=== PATIENT | male | born 1965 | race American Indian/Alaskan Native ===

== ENCOUNTER 2018-10-24 13:21 | Inpatient (IN) | payer BC ==
--- NOTE | 2018-10-24 13:29 | Event Note ---
ED Screening Note Date of service: 10/24/18 Time: 13:27 ED Screening Note: This is a 53 y.o. M. that presents to the ER with abdominal pain, dizziness, and nausea since yesterday. Denies recent travel This initial assessment/diagnostic orders/clinical plan/treatment(s) is/are subject to change based on patients health status, clinical progression and re- assessment by fellow clinical providers in the ED. Further treatment and workup at subsequent clinical providers discretion. Patient/guardian urged not to elope from the ED as their condition may be serious if not clinically assessed and managed. Initial orders include: Labs
[2018-10-24 13:40] LABS: Basophils # (Auto) 0.1 K/mm3 (0.0-0.1); Basophils % (Auto) 0.6 % (0.0-1.8); Eosinophils # (Auto) 0.1 K/mm3 (0.0-0.4); Eosinophils % (Auto) 0.4 % (0.0-4.3); Hematocrit 48.3 % (35.5-45.6); Hemoglobin 16.2 gm/dl (11.8-15.2); Lymphocytes # (Auto) 2.8 K/mm3 (1.2-5.4); Lymphocytes % (Auto) 14.2 % (13.4-35.0); Mean Corpuscular HGB Conc 34 % (32-34); Mean Corpuscular Volume 81 fl (84-94); Monocytes # (Auto) 0.9 K/mm3 (0.0-0.8); Monocytes % (Auto) 4.4 % (0.0-7.3); Platelet Count 284 K/mm3 (140-440); Red Blood Count 5.98 M/mm3 (3.65-5.03); Red Cell Distribution Width 14.6 % (13.2-15.2)
[2018-10-24 14:07] LABS: Bacteria,Urine 1+ /HPF (Negative); Bilirubin,Urine NEG (Negative); Blood,Urine SM (Negative); Color,Urine Straw (Yellow); Mucus,Urine FEW /HPF; Protein,Urine <15 mg/dL mg/dL (Negative); Urobilinogen,Urine < 2.0 mg/dL (<2.0); WBC,Urine < 1.0 /HPF (0.0-6.0)
[2018-10-24 14:20] LABS: Albumin 4.5 g/dL (3.9-5)
[2018-10-24] MEDS ORDERED: NACL 0.9% 1000 ML 1,000 ML IV ONE ×2 (14:43→14:44)
[2018-10-24] MEDS ORDERED: HumuLIN R IV ONE (14:43)
[2018-10-24] MEDS ORDERED: D50W (25GM) Syringe IV PRN ×2 (14:55→16:54)
[2018-10-24] MEDS ORDERED: HumuLIN R 100 UNITS in NACL 0.9% 99 ML IV SCH ×2 (15:00→17:00)
--- NOTE | 2018-10-24 15:03 | Emergency Department Report ---
ED General Adult HPI - General Chief complaint: Abdominal Pain Stated complaint: STOMACH PAIN/LIGHT HEADED Time Seen by Provider: 10/24/18 13:26 Source: patient Mode of arrival: Ambulatory Limitations: No Limitations - History of Present Illness Initial comments: 53-year-old male with no past medical surgical history presents to the hospital complaining of feeling ill for the last several days. Patient had a root canal 4 days ago and has been on a soft diet. He is not prescribed antibiotics. He denies fever. The last several days patient has had nausea, poor appetite, increased thirst, increased urination, lethargy, and fatigue. Yesterday he had one episode of vomiting but has not vomited since. He denies abdominal pain currently although he did complain of pain in triage and to friend at the bedside. - Related Data Home Medications Medication Instructions Recorded Confirmed Last Taken Amoxicillin [Trimox CAP] 500 mg PO TID 10/24/18 10/24/18 Unknown Tylenol /Codeine # 3 tab 1 each PO Q6H PRN 10/24/18 10/24/18 Unknown Allergies Allergy/AdvReac Type Severity Reaction Status Date / Time No Known Allergies Allergy Verified 10/24/18 13:24 ED Review of Systems ROS: Stated complaint: STOMACH PAIN/LIGHT HEADED Other details as noted in HPI Comment: All other systems reviewed and negative ED Past Medical Hx - Social History Smoking Status: Never Smoker Substance Use Type: Alcohol - Medications Home Medications: Home Medications Medication Instructions Recorded Confirmed Last Taken Type Amoxicillin [Trimox CAP] 500 mg PO TID 10/24/18 10/24/18 Unknown History Tylenol /Codeine # 3 tab 1 each PO Q6H PRN 10/24/18 10/24/18 Unknown History ED Physical Exam - General Limitations: No Limitations - Other Other exam information: Gen.: No acute distress Head: Atraumatic Eyes: Normal appearance ENT: Dry mucous membranes Neck: Normal appearance, no posterior midline tenderness, no meningismus Chest: Clear to auscultation bilaterally Cardiovascular: Med tachycardia Abdomen: Normal appearance, soft, nontender, no rebound or guarding, normal bowel sounds Back: Normal appearance, nontender Extremity: Full range of motion, normal appearance Neuro: Alert and oriented 3, clear speech, no focal motor or sensory deficit Psychiatric: Appropriate Skin: No rash ED Course Vital Signs 10/24/18 10/24/18 13:26 15:05 Temperature 98.3 F Pulse Rate 107 H Respiratory 16 Rate Blood Pressure 149/93 O2 Sat by Pulse 95 Oximetry ED Medical Decision Making - Lab Data Result diagrams: 10/24/18 13:30 10/24/18 15:05 Lab Results 10/24/18 10/24/18 10/24/18 Range/Units 13:30 13:30 13:51 WBC 19.9 H (4.5-11.0) K/mm3 RBC 5.98 H (3.65-5.03) M/mm3 Hgb 16.2 H (11.8-15.2) gm/dl Hct 48.3 H (35.5-45.6) % MCV 81 L (84-94) fl MCH 27 L (28-32) pg MCHC 34 (32-34) % RDW 14.6 (13.2-15.2) % Plt Count 284 (140-440) K/mm3 Lymph % (Auto) 14.2 (13.4-35.0) % [place] % (Auto) 4.4 (0.0-7.3) % Eos % (Auto) 0.4 (0.0-4.3) % Baso % (Auto) 0.6 (0.0-1.8) % Lymph # 2.8 (1.2-5.4) K/mm3 [place] # 0.9 H (0.0-0.8) K/mm3 Eos # 0.1 (0.0-0.4) K/mm3 Baso # 0.1 (0.0-0.1) K/mm3 Seg Neutrophils % 80.4 H (40.0-70.0) % Seg Neutrophils # 16.0 H (1.8-7.7) K/mm3 Sodium 131 L (137-145) mmol/L Potassium 5.7 H (3.6-5.0) mmol/L Chloride 87.0 L (98-107) mmol/L Carbon Dioxide 12 L (22-30) mmol/L Anion Gap 38 mmol/L BUN 25 H (9-20) mg/dL Creatinine 1.6 H (0.8-1.5) mg/dL Estimated GFR 55 ml/min BUN/Creatinine Ratio 16 % Glucose 756 H* (75-100) mg/dL Calcium 10.0 (8.4-10.2) mg/dL Total Bilirubin 1.60 H (0.1-1.2) mg/dL AST 23 (5-40) units/L ALT 14 (7-56) units/L Alkaline Phosphatase 104 (35-129) units/L Total Protein 8.9 H (6.3-8.2) g/dL Albumin 4.5 (3.9-5) g/dL Albumin/Globulin Ratio 1.0 % Lipase 26 (13-60) units/L Urine Color Straw (Yellow) Urine Turbidity Clear (Clear) Urine pH 5.0 (5.0-7.0) Ur Specific [place] 1.028 (1.003-1.030) Urine Protein <15 mg/dl (Negative) mg/dL Urine Glucose (UA) >=500 (Negative) mg/dL Urine Ketones 80 (Negative) mg/dL Urine Blood Sm (Negative) Urine Nitrite Neg (Negative) Urine Bilirubin Neg (Negative) Urine Urobilinogen < 2.0 (<2.0) mg/dL Ur Leukocyte Esterase Neg (Negative) Urine WBC (Auto) < 1.0 (0.0-6.0) /HPF Urine RBC (Auto) 2.0 (0.0-6.0) /HPF U Epithel Cells (Auto) < 1.0 (0-13.0) /HPF Urine Bacteria (Auto) 1+ (Negative) /HPF Urine Mucus Few /HPF - EKG Data -: EKG Interpreted by [place] EKG shows normal: sinus rhythm, axis, ST-T waves (no stemi) Rate: tachycardia (112) - Medical Decision Making pt with nausea diabetes and DKA diagnosis. Insulin bolus, normal saline, insulin drip initiated. Patient has leukocytosis without signs of infections at this time. Patient admitted ICU to hospitalist service. - Differential Diagnosis infection, dehydration, diabetes, Critical Care Time: Yes Critical care time in (mins) excluding proc time.: 35 Critical care attestation.: If time is entered above; I have spent that time in minutes in the direct care of this critically ill patient, excluding procedure time. ED Disposition Clinical Impression: Diabetes mellitus, new onset, DKA (diabetic ketoacidosis), Leukocytosis, uns pecified, Renal insufficiency Disposition: DC09 OP ADMIT IP TO THIS HOSP Is pt being admited?: Yes Condition: Stable Time of Disposition: 15:22 (Dr canchola/hosp)
[2018-10-24 15:48] LABS: Blood Urea Nitrogen TNR mg/dL (9-20)
[2018-10-24 15:49] LABS: BUN/Creatinine Ratio TNR; Calcium TNR mg/dL (8.4-10.2); Hemolysis Index TNR
--- NOTE | 2018-10-24 16:32 | History and Physical Report ---
History of Present Illness Date of examination: 10/24/18 Date of admission: 10/24/18 15:23 Chief complaint: Feeling weak and tired 1 week History of present illness: 53-year-old male with no past medical surgical history presents to the hospital complaining of feeling ill for the last several days. Patient had a root canal 4 days ago and has been on a soft diet. He is not prescribed antibiotics. He denies fever. The last several days patient has had nausea, poor appetite, increased thirst, increased urination, lethargy, and fatigue. Yesterday he had one episode of vomiting but has not vomited since. He denies abdominal pain currently although he did complain of pain in triage and to friend at the bedside. PMH None PSH None Social History Smoking Status: Never Smoker Substance Use Type: Alcohol Review of Systems ROS: Stated complaint: STOMACH PAIN/LIGHT HEADED Other details as noted in HPI Has polyphagia and polyuria.ALso increased thirst and drinking lots of fluids Comment: All other systems reviewed and negative Medications and Allergies Allergies Allergy/AdvReac Type Severity Reaction Status Date / Time No Known Allergies Allergy Verified 10/24/18 13:24 Home Medications Medication Instructions Recorded Confirmed Last Taken Type Amoxicillin [Trimox CAP] 500 mg PO TID 10/24/18 10/24/18 Unknown History Tylenol /Codeine # 3 tab 1 each PO Q6H PRN 10/24/18 10/24/18 Unknown History Active Meds: Active Medications Dextrose (D50w (25gm) Syringe) 0 ml IV PRN PRN PRN Reason: Hypoglycemia Insulin Human Regular 100 (units/ Sodium Chloride) 100 mls @ 1 mls/hr IV TITR SADA; Protocol Exam - Constitutional Vitals: Temp Pulse Resp BP Pulse Ox 98.3 F 107 H 16 149/93 95 10/24/18 15:05 10/24/18 13:26 10/24/18 13:26 10/24/18 13:26 10/24/18 13:26 General appearance: Present: mild distress, well-nourished - EENT Eyes: Present: PERRL ENT: hearing intact, clear oral mucosa - Neck Neck: Present: supple, normal ROM - Respiratory Respiratory effort: normal Respiratory: bilateral: CTA - Cardiovascular Heart rate: 78 Rhythm: regular Heart Sounds: Present: S1 & S2. Absent: rub, click - Extremities Extremities: no ischemia, pulses intact, pulses symmetrical, No edema Peripheral Pulses: within normal limits - Abdominal General gastrointestinal: Present: soft, non-tender, non-distended, normal bowel sounds Male genitourinary: Present: normal - Rectal Rectal Exam: deferred - Integumentary Integumentary: Present: clear, warm, dry - Musculoskeletal Musculoskeletal: gait normal, strength equal bilaterally - Psychiatric Psychiatric: appropriate mood/affect, intact judgment & insight - Neurologic Neurologic: CNII-XII intact, moves all extremities - Allied Health Allied health notes reviewed: nursing Results - Labs CBC & Chem 7: 10/24/18 13:30 10/25/18 01:33 Labs: Laboratory Last Values WBC 19.9 K/mm3 (4.5-11.0) H 10/24/18 13:30 RBC 5.98 M/mm3 (3.65-5.03) H 10/24/18 13:30 Hgb 16.2 gm/dl (11.8-15.2) H 10/24/18 13:30 Hct 48.3 % (35.5-45.6) H 10/24/18 13:30 MCV 81 fl (84-94) L 10/24/18 13:30 MCH 27 pg (28-32) L 10/24/18 13:30 MCHC 34 % (32-34) 10/24/18 13:30 RDW 14.6 % (13.2-15.2) 10/24/18 13:30 Plt Count 284 K/mm3 (140-440) 10/24/18 13:30 Lymph % (Auto) 14.2 % (13.4-35.0) 10/24/18 13:30 [place] % (Auto) 4.4 % (0.0-7.3) 10/24/18 13:30 Eos % (Auto) 0.4 % (0.0-4.3) 10/24/18 13:30 Baso % (Auto) 0.6 % (0.0-1.8) 10/24/18 13:30 Lymph # 2.8 K/mm3 (1.2-5.4) 10/24/18 13:30 [place] # 0.9 K/mm3 (0.0-0.8) H 10/24/18 13:30 Eos # 0.1 K/mm3 (0.0-0.4) 10/24/18 13:30 Baso # 0.1 K/mm3 (0.0-0.1) 10/24/18 13:30 Seg Neutrophils % 80.4 % (40.0-70.0) H 10/24/18 13:30 Seg Neutrophils # 16.0 K/mm3 (1.8-7.7) H 10/24/18 13:30 VBG pH 7.294 (7.320-7.420) L 10/24/18 15:05 Sodium TNR 10/24/18 15:05 Potassium TNR 10/24/18 15:05 Chloride TNR 10/24/18 15:05 Carbon Dioxide TNR 10/24/18 15:05 TNR 10/24/18 15:05 BUN TNR 10/24/18 15:05 TNR 10/24/18 15:05 Estimated GFR TNR 10/24/18 15:05 TNR 10/24/18 15:05 Glucose TNR 10/24/18 15:05 Calcium TNR 10/24/18 15:05 Phosphorus 5.40 mg/dL (2.5-4.5) H 10/24/18 15:05 Magnesium 2.70 mg/dL (1.7-2.3) H 10/24/18 15:05 1.60 mg/dL (0.1-1.2) H 10/24/18 13:30 AST 23 units/L (5-40) 10/24/18 13:30 ALT 14 units/L (7-56) 10/24/18 13:30 104 units/L (35-129) 10/24/18 13:30 8.9 g/dL (6.3-8.2) H 10/24/18 13:30 4.5 g/dL (3.9-5) 10/24/18 13:30 1.0 % 10/24/18 13:30 26 units/L (13-60) 10/24/18 13:30 Straw (Yellow) 10/24/18 13:51 Clear (Clear) 10/24/18 13:51 5.0 (5.0-7.0) 10/24/18 13:51 Ur Specific [place] 1.028 (1.003-1.030) 10/24/18 13:51 <15 mg/dl mg/dL (Negative) 10/24/18 13:51 >=500 mg/dL (Negative) 10/24/18 13:51 80 mg/dL (Negative) 10/24/18 13:51 Sm (Negative) 10/24/18 13:51 Neg (Negative) 10/24/18 13:51 Neg (Negative) 10/24/18 13:51 < 2.0 mg/dL (<2.0) 10/24/18 13:51 Ur Leukocyte Esterase Neg (Negative) 10/24/18 13:51 < 1.0 /HPF (0.0-6.0) 10/24/18 13:51 2.0 /HPF (0.0-6.0) 10/24/18 13:51 U Epithel Cells (Auto) < 1.0 /HPF (0-13.0) 10/24/18 13:51 1+ /HPF (Negative) 10/24/18 13:51 Few /HPF 10/24/18 13:51 Short CBC 10/24/18 Range/Units 13:30 WBC 19.9 H (4.5-11.0) K/mm3 Hgb 16.2 H (11.8-15.2) gm/dl Hct 48.3 H (35.5-45.6) % Plt Count 284 (140-440) K/mm3 BMP 10/24/18 10/24/18 10/24/18 13:30 15:05 17:45 Sodium 131 L TNR 135 L Potassium 5.7 H TNR 5.0 Chloride 87.0 L TNR 96.8 L Carbon Dioxide 12 L TNR 11 L BUN 25 H TNR 23 H Creatinine 1.6 H TNR 1.5 Glucose 756 H* TNR 502 H* Calcium 10.0 TNR 9.6 10/24/18 10/24/18 10/24/18 20:40 21:05 23:12 Sodium 138 138 141 Potassium 5.1 H 5.1 H 4.3 Chloride 98.5 99.4 103.4 Carbon Dioxide 12 L 13 L 20 L D BUN 23 H 23 H 22 H Creatinine 1.5 1.5 1.4 Glucose 385 H 386 H 291 H Calcium 10.2 10.3 H 10.1 10/25/18 01:33 Sodium 142 Potassium 4.4 Chloride 105.3 Carbon Dioxide 22 BUN 21 H Creatinine 1.4 Glucose 269 H Calcium 10.0 Liver Function 10/24/18 Range/Units 13:30 Total Bilirubin 1.60 H (0.1-1.2) mg/dL AST 23 (5-40) units/L ALT 14 (7-56) units/L Alkaline Phosphatase 104 (35-129) units/L Albumin 4.5 (3.9-5) g/dL Urine 10/24/18 Range/Units 13:51 Urine Color Straw (Yellow) Urine pH 5.0 (5.0-7.0) Ur Specific [place] 1.028 (1.003-1.030) Urine Protein <15 mg/dl (Negative) mg/dL Urine Glucose (UA) >=500 (Negative) mg/dL Assessment and Plan Advance Directives: Yes (Full code) VTE prophylaxis?: Chemical Plan of care discussed with patient/family: Yes - Patient Problems (1) Hyperosmolar non-ketotic state in patient with type 2 diabetes mellitus Current Visit: Yes Status: Acute Plan to address problem: New onset diabetes with Hyperosmolar state. Ketones are mildly positive DKA protocol initiated IV Insulin and IV fluids initiated (2) Hyponatremia Current Visit: Yes Status: Acute Plan to address problem: Should correct with correction of Glucose levels (3) Leukocytosis, unspecified Current Visit: Yes Status: Acute Plan to address problem: Probable demargination Empiric IV Rocephin Initiated (4) Hyperkalemia Current Visit: Yes Status: Acute Plan to address problem: Should correct with insulin drip and correction of BG levels (5) DVT prophylaxis Current Visit: Yes Status: Acute Plan to address problem: On lovenox and GI prophylaxis
[2018-10-24 18:27] LABS: Calcium 9.6 mg/dL (8.4-10.2)
[2018-10-24] MEDS: NACL 0.9% 1000 ML 1,000 ML IV SCH (21:15)
[2018-10-24 21:47] LABS: Calcium 10.3 mg/dL (8.4-10.2)
[2018-10-24 21:59] LABS: Calcium 10.2 mg/dL (8.4-10.2)
[2018-10-24] MEDS ORDERED: D5/0.45NS 1,000 ML IV SCH (23:45)
[2018-10-25 00:01] LABS: BUN/Creatinine Ratio 16; Blood Urea Nitrogen 22 mg/dL (9-20); Calcium 10.1 mg/dL (8.4-10.2); Hemolysis Index 6
[2018-10-25] MEDS ORDERED: D5/0.45NS 1,000 ML IV ONE (00:45)
[2018-10-25 02:08] LABS: BUN/Creatinine Ratio 15; Blood Urea Nitrogen 21 mg/dL (9-20); Hemolysis Index 6
[2018-10-25] MEDS: KCL 10MEQ/100ML 10 MEQ/100 ML BAG IV SCH ×6 (07:31→19:51)
[2018-10-25] MEDS: ROCEPHIN/NS 2 GM/100 ML 2 GM/100 ML BAG IV SCH ×2 (07:33→12:20)
--- NOTE | 2018-10-25 08:21 | Progress Note ---
Assessment and Plan Assessment and plan: Patient is a 53-year-old man without a known history of chronic medical problems who presented to [facility] ED with N/V, poor appetite, increased thirst, increased urination, lethargy, and fatigue. Patient had a root canal 5 days ago. -DKA/HONK: anion gap has closed, will transition to sq Insulin/Lantus with SSI -New onset DM type 2 needing insulin: A1c is 6.1 -ARF, vasomotor nephropathy: treat with IVF -SIRS with organ dysfunction, renal failure and new DM: on empiric Rocephin, get blood cultures x 2 sets, check CXR -Oral thrush, either DM related vs HIV vs other: Patient declined HIV testing because he had one within this year, counseling and education done, treat with diflucan -Recent Root canal: he should return to his Dentist -Hyperkalemia: treated with IV insulin, monitor bmp closely -Metabolic Acidosis: treat the DKA -DVT/GI reviewed Disposition: continue inpatient care, can downgrade to Med Surg once off Insulin CCT 32 minutes History Interval history: Patient was seen and examined. Follow-up on current diagnosis of DKA. No overnight events reported to me. Patient denies any chest pain, shortness breath, nausea/vomiting or severe headaches. Imaging, nursing note, chart, labs and old chart reviewed. Discussed with patient. Hospitalist Physical - Physical exam Narrative exam: Gen: WDWN, NAD, Awake, Alert, Orientated HEENT: NCAT, EOMI, PERRL, OP with oral thrush Neck: supple, no adenopathy, no thyromegaly, no JVD CVS/Heart: RRR, normal S1S2, pulses present bilaterally Chest/Lungs: CTA B, Symmetrical chest expansion, good air entry bilaterally GI/Abdomen: soft, NTND, good bowel sounds, no guarding or rebound /Bladder: no suprapubic tenderness, no CVA or paraspinal tenderness Extermity/Skin: no c/c/e, no obvious rash MSK: FROM x 4 Neuro: CN 2-12 grossly intact, no new focal deficits Psych: calm - Constitutional Vitals: Temp Pulse Resp BP Pulse Ox 97.7 F 94 H 16 126/82 97 10/24/18 19:15 10/25/18 07:29 10/25/18 07:29 10/25/18 07:29 10/25/18 07:29 General appearance: Present: well-nourished Results - Labs CBC & Chem 7: 10/24/18 13:30 10/25/18 01:33 Labs: Laboratory Last Values WBC 19.9 K/mm3 (4.5-11.0) H 10/24/18 13:30 RBC 5.98 M/mm3 (3.65-5.03) H 10/24/18 13:30 Hgb 16.2 gm/dl (11.8-15.2) H 10/24/18 13:30 Hct 48.3 % (35.5-45.6) H 10/24/18 13:30 MCV 81 fl (84-94) L 10/24/18 13:30 MCH 27 pg (28-32) L 10/24/18 13:30 MCHC 34 % (32-34) 10/24/18 13:30 RDW 14.6 % (13.2-15.2) 10/24/18 13:30 Plt Count 284 K/mm3 (140-440) 10/24/18 13:30 Lymph % (Auto) 14.2 % (13.4-35.0) 10/24/18 13:30 [place] % (Auto) 4.4 % (0.0-7.3) 10/24/18 13:30 Eos % (Auto) 0.4 % (0.0-4.3) 10/24/18 13:30 Baso % (Auto) 0.6 % (0.0-1.8) 10/24/18 13:30 Lymph # 2.8 K/mm3 (1.2-5.4) 10/24/18 13:30 [place] # 0.9 K/mm3 (0.0-0.8) H 10/24/18 13:30 Eos # 0.1 K/mm3 (0.0-0.4) 10/24/18 13:30 Baso # 0.1 K/mm3 (0.0-0.1) 10/24/18 13:30 Seg Neutrophils % 80.4 % (40.0-70.0) H 10/24/18 13:30 Seg Neutrophils # 16.0 K/mm3 (1.8-7.7) H 10/24/18 13:30 VBG pH 7.294 (7.320-7.420) L 10/24/18 15:05 Sodium 142 mmol/L (137-145) 10/25/18 01:33 Potassium 4.4 mmol/L (3.6-5.0) 10/25/18 01:33 Chloride 105.3 mmol/L (98-107) 10/25/18 01:33 Carbon Dioxide 22 mmol/L (22-30) 10/25/18 01:33 19 mmol/L 10/25/18 01:33 BUN 21 mg/dL (9-20) H 10/25/18 01:33 1.4 mg/dL (0.8-1.5) 10/25/18 01:33 Estimated GFR > 60 ml/min 10/25/18 01:33 15 % 10/25/18 01:33 Glucose 269 mg/dL (75-100) H 10/25/18 01:33 POC Glucose 195 (70-105) H 10/25/18 08:00 6.1 % (4-6) H 10/24/18 17:42 Calcium 10.0 mg/dL (8.4-10.2) 10/25/18 01:33 Phosphorus 3.10 mg/dL (2.5-4.5) D 10/24/18 17:42 Magnesium 2.60 mg/dL (1.7-2.3) H 10/24/18 17:42 1.60 mg/dL (0.1-1.2) H 10/24/18 13:30 AST 23 units/L (5-40) 10/24/18 13:30 ALT 14 units/L (7-56) 10/24/18 13:30 104 units/L (35-129) 10/24/18 13:30 8.9 g/dL (6.3-8.2) H 10/24/18 13:30 4.5 g/dL (3.9-5) 10/24/18 13:30 1.0 % 10/24/18 13:30 26 units/L (13-60) 10/24/18 13:30 Straw (Yellow) 10/24/18 13:51 Clear (Clear) 10/24/18 13:51 5.0 (5.0-7.0) 10/24/18 13:51 Ur Specific [place] 1.028 (1.003-1.030) 10/24/18 13:51 <15 mg/dl mg/dL (Negative) 10/24/18 13:51 >=500 mg/dL (Negative) 10/24/18 13:51 80 mg/dL (Negative) 10/24/18 13:51 Sm (Negative) 10/24/18 13:51 Neg (Negative) 10/24/18 13:51 Neg (Negative) 10/24/18 13:51 < 2.0 mg/dL (<2.0) 10/24/18 13:51 Ur Leukocyte Esterase Neg (Negative) 10/24/18 13:51 < 1.0 /HPF (0.0-6.0) 10/24/18 13:51 2.0 /HPF (0.0-6.0) 10/24/18 13:51 U Epithel Cells (Auto) < 1.0 /HPF (0-13.0) 10/24/18 13:51 1+ /HPF (Negative) 10/24/18 13:51 Few /HPF 10/24/18 13:51 Active Medications - Current Medications Current Medications: Generic Name Dose Route Start Last Admin Trade Name Freq PRN Reason Stop Dose Admin Dextrose 0 ml 10/24/18 16:54 D50w (25gm) Syringe IV PRN PRN Hypoglycemia Insulin Human Regular 100 100 mls @ 1 mls/hr 10/24/18 15:00 10/25/18 06:35 units/ Sodium Chloride IV 10 units/hr TITR SADA 10 mls/hr Titration Protocol 1 UNITS/HR Sodium Chloride 1,000 mls @ 125 mls/hr 10/24/18 21:00 10/24/18 21:15 Nacl 0.9% 1000 Ml IV 125 mls/hr DIRECT SADA Administration Dextrose/Sodium Chloride 1,000 mls @ 125 mls/hr 10/24/18 23:45 10/25/18 00:45 D5/0.45ns IV 125 mls/hr DIRECT SADA Administration Ceftriaxone Sodium 2 gm in 100 mls @ 200 mls/hr 10/25/18 06:29 10/25/18 07:33 Rocephin/Ns 2 Gm/100 Ml IV 200 mls/hr Q24HR SADA Administration Protocol
[2018-10-25] MEDS ORDERED: D50W (25GM) Syringe IV PRN (08:24)
[2018-10-25] MEDS ORDERED: LANTUS SUB-Q ONE (08:24)
--- NOTE | 2018-10-25 09:22 | XRay Report ---
CHEST 1 VIEW INDICATION: n/v, aspiration pna. COMPARISON: None FINDINGS: Support devices: None. Heart: Within normal limits. Lungs/Pleura: No acute air space or interstitial disease. Additional findings: None. IMPRESSION: 1. No acute findings. Signer Name: Kai Martin MD Signed: 10/25/2018 9:17 AM Workstation Name: [id number]
[2018-10-25] MEDS ORDERED: HumaLOG SUB-Q ONE (09:31)
[2018-10-25] MEDS: HumaLOG SUB-Q SCH ×3 (09:32→17:18)
[2018-10-25] MEDS ORDERED: DIFLUCAN PO ONE (11:00)
[2018-10-25] MEDS: NACL 0.9% 1000 ML 1,000 ML IV SCH ×2 (11:26→21:23)
[2018-10-26] MEDS: HumaLOG SUB-Q SCH ×5 (00:39→23:17)
[2018-10-26 04:59] LABS: Hematocrit 44.7 % (35.5-45.6); Hemoglobin 15.1 gm/dl (11.8-15.2); Mean Corpuscular HGB Conc 34 % (32-34); Mean Corpuscular Volume 81 fl (84-94); Platelet Count 178 K/mm3 (140-440); Red Blood Count 5.51 M/mm3 (3.65-5.03); Red Cell Distribution Width 14.9 % (13.2-15.2)
[2018-10-26 05:21] LABS: BUN/Creatinine Ratio 16; Blood Urea Nitrogen 21 mg/dL (9-20); Calcium 9.5 mg/dL (8.4-10.2); Hemolysis Index 18
[2018-10-26] MEDS: NACL 0.9% 1000 ML 1,000 ML IV SCH (05:34)
[2018-10-26] MEDS ORDERED: LANTUS SUB-Q SCH (08:00)
[2018-10-26] MEDS: DIFLUCAN PO SCH (09:06)
[2018-10-26] MEDS: ROCEPHIN/NS 2 GM/100 ML 2 GM/100 ML BAG IV SCH (09:06)
[2018-10-26] MEDS ORDERED: LANTUS SUB-Q ONE (10:39)
--- NOTE | 2018-10-26 10:41 | Progress Note ---
Assessment and Plan Assessment and plan: Patient is a 53-year-old man without a known history of chronic medical problems who presented to [facility] ED with N/V, poor appetite, increased thirst, increased urination, lethargy, and fatigue. Patient had a root canal 5 days ago. -DKA/HONK: anion gap has closed, will transition to sq Insulin/Lantus with SSI -New onset DM type 2 needing insulin: A1c is 6.1 -ARF, vasomotor nephropathy: treat with IVF -SIRS with organ dysfunction, renal failure and new DM: on empiric Rocephin, get blood cultures x 2 sets, check CXR -Oral thrush, either DM related vs HIV vs other: Patient declined HIV testing because he had one within this year, counseling and education done, treat with diflucan -Recent Root canal: he should return to his Dentist -Hyperkalemia: treated with IV insulin, monitor bmp closely -Metabolic Acidosis: treat the DKA -DVT/GI reviewed Disposition: continue inpatient care, increase Lantus to 35 units qam, if blood glucose steady then d/c tomorrow has oral thrush but declined HIV testing, History Interval history: Patient was seen and examined. Follow-up on current diagnosis of DKA. No overnight events reported to me. Patient denies any chest pain, shortness breath, nausea/vomiting or severe headaches. Imaging, nursing note, chart, labs and old chart reviewed. Discussed with patient. Hospitalist Physical - Physical exam Narrative exam: Gen: WDWN, NAD, Awake, Alert, Orientated HEENT: NCAT, EOMI, PERRL, OP with oral thrush Neck: supple, no adenopathy, no thyromegaly, no JVD CVS/Heart: RRR, normal S1S2, pulses present bilaterally Chest/Lungs: CTA B, Symmetrical chest expansion, good air entry bilaterally GI/Abdomen: soft, NTND, good bowel sounds, no guarding or rebound /Bladder: no suprapubic tenderness, no CVA or paraspinal tenderness Extermity/Skin: no c/c/e, no obvious rash MSK: FROM x 4 Neuro: CN 2-12 grossly intact, no new focal deficits Psych: calm - Constitutional Vitals: Temp Pulse Resp BP Pulse Ox 98.0 F 77 24 120/78 97 10/26/18 04:59 10/26/18 04:59 10/26/18 04:59 10/26/18 04:59 10/26/18 04:59 General appearance: Present: well-nourished Results - Labs CBC & Chem 7: 10/26/18 04:24 10/26/18 04:24 Labs: Laboratory Last Values WBC 13.3 K/mm3 (4.5-11.0) H 10/26/18 04:24 RBC 5.51 M/mm3 (3.65-5.03) H 10/26/18 04:24 Hgb 15.1 gm/dl (11.8-15.2) 10/26/18 04:24 Hct 44.7 % (35.5-45.6) 10/26/18 04:24 MCV 81 fl (84-94) L 10/26/18 04:24 MCH 27 pg (28-32) L 10/26/18 04:24 MCHC 34 % (32-34) 10/26/18 04:24 RDW 14.9 % (13.2-15.2) 10/26/18 04:24 Plt Count 178 K/mm3 (140-440) 10/26/18 04:24 Lymph % (Auto) 14.2 % (13.4-35.0) 10/24/18 13:30 Travis % (Auto) 4.4 % (0.0-7.3) 10/24/18 13:30 Eos % (Auto) 0.4 % (0.0-4.3) 10/24/18 13:30 Baso % (Auto) 0.6 % (0.0-1.8) 10/24/18 13:30 Lymph # 2.8 K/mm3 (1.2-5.4) 10/24/18 13:30 Travis # 0.9 K/mm3 (0.0-0.8) H 10/24/18 13:30 Eos # 0.1 K/mm3 (0.0-0.4) 10/24/18 13:30 Baso # 0.1 K/mm3 (0.0-0.1) 10/24/18 13:30 Seg Neutrophils % 80.4 % (40.0-70.0) H 10/24/18 13:30 Seg Neutrophils # 16.0 K/mm3 (1.8-7.7) H 10/24/18 13:30 VBG pH 7.294 (7.320-7.420) L 10/24/18 15:05 Sodium 139 mmol/L (137-145) 10/26/18 04:24 Potassium 4.1 mmol/L (3.6-5.0) 10/26/18 04:24 Chloride 105.0 mmol/L (98-107) 10/26/18 04:24 Carbon Dioxide 21 mmol/L (22-30) L 10/26/18 04:24 17 mmol/L 10/26/18 04:24 BUN 21 mg/dL (9-20) H 10/26/18 04:24 1.3 mg/dL (0.8-1.5) 10/26/18 04:24 Estimated GFR > 60 ml/min 10/26/18 04:24 16 % 10/26/18 04:24 Glucose 311 mg/dL (75-100) H 10/26/18 04:24 POC Glucose 297 (70-105) H 10/26/18 05:34 6.1 % (4-6) H 10/24/18 17:42 Calcium 9.5 mg/dL (8.4-10.2) 10/26/18 04:24 Phosphorus 3.10 mg/dL (2.5-4.5) D 10/24/18 17:42 Magnesium 2.60 mg/dL (1.7-2.3) H 10/24/18 17:42 1.60 mg/dL (0.1-1.2) H 10/24/18 13:30 AST 23 units/L (5-40) 10/24/18 13:30 ALT 14 units/L (7-56) 10/24/18 13:30 104 units/L (35-129) 10/24/18 13:30 8.9 g/dL (6.3-8.2) H 10/24/18 13:30 4.5 g/dL (3.9-5) 10/24/18 13:30 1.0 % 10/24/18 13:30 26 units/L (13-60) 10/24/18 13:30 Straw (Yellow) 10/24/18 13:51 Clear (Clear) 10/24/18 13:51 5.0 (5.0-7.0) 10/24/18 13:51 Ur Specific [place] 1.028 (1.003-1.030) 10/24/18 13:51 <15 mg/dl mg/dL (Negative) 10/24/18 13:51 >=500 mg/dL (Negative) 10/24/18 13:51 80 mg/dL (Negative) 10/24/18 13:51 Sm (Negative) 10/24/18 13:51 Neg (Negative) 10/24/18 13:51 Neg (Negative) 10/24/18 13:51 < 2.0 mg/dL (<2.0) 10/24/18 13:51 Ur Leukocyte Esterase Neg (Negative) 10/24/18 13:51 < 1.0 /HPF (0.0-6.0) 10/24/18 13:51 2.0 /HPF (0.0-6.0) 10/24/18 13:51 U Epithel Cells (Auto) < 1.0 /HPF (0-13.0) 10/24/18 13:51 1+ /HPF (Negative) 10/24/18 13:51 Few /HPF 10/24/18 13:51 Active Medications - Current Medications Current Medications: Generic Name Dose Route Start Last Admin Trade Name Freq PRN Reason Stop Dose Admin Dextrose 50 ml 10/25/18 08:24 D50w (25gm) Syringe IV PRN PRN Hypoglycemia Fluconazole 100 mg 10/26/18 10:00 10/26/18 09:06 Diflucan PO 100 mg QDAY SADA Administration Sodium Chloride 1,000 mls @ 100 mls/hr 10/24/18 21:00 10/26/18 05:34 Nacl 0.9% 1000 Ml IV 125 mls/hr DIRECT SADA Administration Ceftriaxone Sodium 2 gm in 100 mls @ 200 mls/hr 10/25/18 06:29 10/26/18 09:06 Rocephin/Ns 2 Gm/100 Ml IV 200 mls/hr Q24HR SADA Administration Protocol Insulin Glargine 10 units 10/26/18 10:39 Lantus SUB-Q 10/26/18 10:40 ONCE ONE Insulin Glargine 35 units 10/27/18 08:00 Lantus SUB-Q QAMDIAB [facility] Insulin Human Lispro 0 unit 10/25/18 09:00 10/26/18 05:34 Humalog SUB-Q 6 unit Q6HR [facility] Administration Protocol Nutrition/Malnutrition Assess - Dietary Evaluation Nutrition/Malnutrition Findings: Nutrition Notes Start: 10/25/18 13:59 Freq: Status: Active Protocol: Document 10/25/18 13:59 RANDAL (Rec: 10/25/18 14:00 RANDAL [email or web address]) Nutrition Notes Need for Assessment generated from: MD Order,Education Initial or Follow up Brief Note Other Pertinent Diagnosis New onset DM Current Diet Consistent CHO Labs/Tests A1C 6.1 Subjective/Other Information RD consulted for diet education. BG upon admission was 756. Pt admitted with S/S of hyperglycemia. He reports family hx of DM and is receptive to diet education. Pt informed of free DM classes offered at this hospital. Minimum of two criteria No #1 Nutrition Diagnosis Food and nutrition-related knowledge deficit Etiology new onset DM As Evidenced by Signs and Symptoms pt unaware of food sources of CHO Nutrition Intervention Teaching Recipient Patient Learning Readiness Good Teaching Methods Discussion,Handout Response to Teaching Verbalize understanding Education Handouts Provided Signs and Symptoms of Hyperglycemia and Hypoglycemia Hemoglobin A1C and Blood Sugar Control Carbohydrate Counting for People with Diabetes Barriers to Learning No Barriers RD phone number provided Yes Patient aware of follow up options Yes Actions To Overcome Barriers Collaboration with Other Providers Goal #1 Improved BG control Goal #2 Adherence to CHO-controlled diet Anticipated Discharge Needs: CHO-controlled diet Revisit per MD consult or patient Sign Off request:
[2018-10-26] MEDS ORDERED: D50W (25GM) Syringe IV PRN (10:42)
[2018-10-27] MEDS ORDERED: LANTUS SUB-Q SCH (08:00)
[2018-10-27 08:50] LABS: Hematocrit 42.3 % (35.5-45.6); Hemoglobin 14.6 gm/dl (11.8-15.2); Mean Corpuscular HGB Conc 35 % (32-34); Mean Corpuscular Volume 81 fl (84-94); Platelet Count 167 K/mm3 (140-440); Red Blood Count 5.24 M/mm3 (3.65-5.03); Red Cell Distribution Width 14.3 % (13.2-15.2)
[2018-10-27] MEDS: HumaLOG SUB-Q SCH ×3 (08:57→17:57)
[2018-10-27] MEDS: ROCEPHIN/NS 2 GM/100 ML 2 GM/100 ML BAG IV SCH (09:00)
[2018-10-27] MEDS: DIFLUCAN PO SCH (09:04)
[2018-10-27 09:12] LABS: BUN/Creatinine Ratio 15; Blood Urea Nitrogen 17 mg/dL (9-20); Calcium 9.4 mg/dL (8.4-10.2); Hemolysis Index 5
--- NOTE | 2018-10-27 10:16 | Discharge Summary ---
Providers - Providers Date of Admission: 10/24/18 15:23 Date of discharge: 10/27/18 Attending physician: GLENNY ARTHUR 10/25/18 06:43 Consult to Dietitian/Nutrition [CONS] Routine Physician Instructions: Reason For Exam: new onset diabetes Reason for Consult: Nutrition Recommendations Reason for Consult: Diet education [facility] Condition: Stable Hospital course: Patient is a 53-year-old man without a known history of chronic medical problems who presented to [facility] ED with N/V, poor appetite, increased thirst, increased urination, lethargy, and fatigue. Patient had a root canal 5 days ago. -DKA/HONK: anion gap has closed, will transition to sq Insulin/Lantus with SSI -New onset DM type 2 needing insulin: A1c is 6.1 -ARF, vasomotor nephropathy: treat with IVF -SIRS with organ dysfunction, renal failure and new DM: on empiric Rocephin, get blood cultures x 2 sets, check CXR -Oral thrush, either DM related vs HIV vs other: Patient declined HIV testing because he had one within this year, counseling and education done, treat with diflucan -Recent Root canal: he should return to his Dentist -Hyperkalemia: treated with IV insulin, monitor bmp closely -Metabolic Acidosis: treat the DKA -DVT/GI reviewed Disposition: d/c home, patient required a total of 51 units of insulin yesterday, will adjust insulin and send home has oral thrush but declined HIV testing, Disposition: TO HOME OR SELFCARE Time spent for discharge: 34 minutes Core Measure Documentation - Palliative Care Palliative Care/ Comfort Measures: Not Applicable - Core Measures Any of the following diagnoses?: none - VTE Discharge Requirements Deep Vein Thrombosis/Pulmonary Embolism Present on Admission: No Has pt received <5 days of overlap therapy or INR<2.0: No Anticoagulant overlap therapy prescribed at discharge: No Contraindication No Overlap Therapy order at DC: Not Indicated Exam - Physical Exam Narrative exam: Gen: WDWN, NAD, Awake, Alert, Orientated HEENT: NCAT, EOMI, PERRL, OP with oral thrush Neck: supple, no adenopathy, no thyromegaly, no JVD CVS/Heart: RRR, normal S1S2, pulses present bilaterally Chest/Lungs: CTA B, Symmetrical chest expansion, good air entry bilaterally GI/Abdomen: soft, NTND, good bowel sounds, no guarding or rebound /Bladder: no suprapubic tenderness, no CVA or paraspinal tenderness Extermity/Skin: no c/c/e, no obvious rash MSK: FROM x 4 Neuro: CN 2-12 grossly intact, no new focal deficits Psych: calm - Constitutional Vitals: Temp Pulse Resp BP Pulse Ox 97.7 F 87 18 135/84 96 10/27/18 04:10/27/18 04:10/27/18 04:10/27/18 04:10/27/18 04:10 Plan Activity: other (no strenous activities unless cleared by PCP) Diet: low salt, diabetic Special Instructions: record blood sugar diary (check times a day with meals) Additional Instructions: Return to your Dentist Follow up with: THOMAS FRANCO MD [Staff Physician] - 7 Days Prescriptions: cefUROXime [Ceftin] 2 tab PO BID 4 Days tablet Fluconazole [Diflucan TAB] 100 mg PO QDAY #12 tablet Insulin Glargine [Lantus VIAL] 35 units SUB-Q QAMDIAB #1 mo Insulin Aspart [NovoLOG Flexpen] 3 units SQ TIDAC #1 pen
[2018-10-27 12:39] VITALS: BP 133/88
== END 2018-10-27 20:15 | disposition home health service (06) | DRG 637 ==
LOC: ED 13:21 → CC1 15:23 → 3A 10-25 08:42
PROVIDERS: ADMIT Internal Medicine; ATTEND Internal Medicine
DX: E11.10 Type 2 diabetes mellitus with ketoacidosis without coma (principal); N17.0 Acute kidney failure with tubular necrosis; R65.11 Systemic inflammatory response syndrome (SIRS) of non-infectious origin with acute organ dysfunction; B37.0 Candidal stomatitis; E87.2 Acidosis; E87.1 Hypo-osmolality and hyponatremia; D72.829 Elevated white blood cell count, unspecified; E87.5 Hyperkalemia; Z79.84 Long term (current) use of oral hypoglycemic drugs
CPT/HCPCS: 36415; 71045; 80048; 80053; 81001; 82805; 82962; 83036; 83690; 83735; 84100; 85025; 85027; 87040; 93005; 93010; 96361; 96365; 96375; G0378; J0696; J1815; J7030